=== PATIENT | male | born 1965 | race Caucasian/White ===

== ENCOUNTER 2018-09-02 11:14 | Emergency (ER) | payer SELFPAY ==
[~2018-09-02] VITALS: Ht 177.8 cm; Wt 78.0 kg
[2018-09-02] MEDS ORDERED: MAGNESIUM/ALUMINUM HYDROXIDE/SIMETHICONE 30ML UDC PO STA (11:39)
[2018-09-02] MEDS ORDERED: ONDANSETRON HCL 4MG/2ML INJ IV ONE (11:45)
[2018-09-02] MEDS ORDERED: SODIUM CHLORIDE 0.9% 1,000 ML IV ONE (11:45)
[2018-09-02] MEDS ORDERED: FAMOTIDINE 20MG/2ML VIAL IV ONE (11:45)
[2018-09-02 12:04] LABS: BASOPHILS % 0.4 % (0.0-2.0); HEMATOCRIT. 44.4 % (42.0-52.0); HEMOGLOBIN. 15.1 g/dL (14.0-18.0); LYMPHOCYTES % 12.7 % (20.0-50.0); MEAN CORPUSCULAR HEMOGLOBIN 32.1 pg (28.0-32.0); MEAN CORPUSCULAR VOLUME 94.2 fL (80.0-94.0); MEAN PLATELET VOLUME 8.9 fl (7.4-10.4); MONOCYTES % 6.7 % (2.0-8.0); NEUTROPHILS % 79.2 % (40.0-76.0); PLATELET 217 x1000/uL (130-400); RED BLOOD CELL COUNT 4.71 mill/uL (4.7-6.1); RED CELL DISTRIBUTION WIDTH 14.1 % (11.6-14.6)
[2018-09-02 12:11] LABS: CHLORIDE 109 mEq/L (98-107)
[2018-09-02 12:12] LABS: PROTHROMBIN TIME 10.1 sec (9.6-11.0)
[2018-09-02] MEDS ORDERED: ACETAMINOPHEN 650MG/20.3ML UDC PO ONE (13:15)
[2018-09-02] MEDS ORDERED: KETOROLAC 15MG/ML VIAL IV ONE (13:15)
[2018-09-02 13:37] VITALS: BP 132/108
== END 2018-09-02 13:45 | disposition home or self-care (01) ==
LOC: ER 11:14
DX: R55 Syncope and collapse (principal); S06.0X9A Concussion with loss of consciousness of unspecified duration, initial encounter; S09.8XXA Other specified injuries of head, initial encounter; S62.316A Displaced fracture of base of fifth metacarpal bone, right hand, initial encounter for closed fracture; R11.0 Nausea; W10.9XXA Fall (on) (from) unspecified stairs and steps, initial encounter; Y93.9 Activity, unspecified; Y92.9 Unspecified place or not applicable
CPT/HCPCS: 29125; 36415; 70450; 71045; 72125; 73130; 80053; 83880; 84484; 85025; 85610; 93005; 96361; 96374; 96375; 99284; J2405; J3490; J7030

== ENCOUNTER 2018-10-02 14:08 | Inpatient (IN) | payer OTHER ==
[~2018-10-02] VITALS: Ht 165.1 cm; Wt 77.6 kg
[2018-10-02] MEDS ORDERED: HYDROCODONE/ACETAMINOPHEN 5/325MG TABLET PO ONE (15:15)
[2018-10-02] MEDS ORDERED: MORPHINE SULFATE 4 MG/ML CPJ (NOT FOR IM USE) IV STA (18:13)
[2018-10-02 20:37] LABS: CHLORIDE 105 mEq/L (98-107)
[2018-10-02 20:45] LABS: BASOPHILS % 0.3 % (0.0-2.0); EOSINOPHILS % 1.1 % (0.0-5.0); HEMATOCRIT. 44.4 % (42.0-52.0); HEMOGLOBIN. 15.2 g/dL (14.0-18.0); LYMPHOCYTES % 14.6 % (20.0-50.0); MEAN CORPUSCULAR HEMOGLOBIN 32.3 pg (28.0-32.0); MEAN CORPUSCULAR VOLUME 94.5 fL (80.0-94.0); MEAN PLATELET VOLUME 8.5 fl (7.4-10.4); MONOCYTES % 5.5 % (2.0-8.0); NEUTROPHILS % 78.5 % (40.0-76.0); PLATELET 215 x1000/uL (130-400); RED BLOOD CELL COUNT 4.69 mill/uL (4.7-6.1)
[2018-10-02] MEDS ORDERED: HYDROCODONE/ACETAMINOPHEN 5/325MG TABLET PO NR (21:44)
[2018-10-02] MEDS ORDERED: ACETAMINOPHEN 325MG TABLET PO PRN (22:00)
[2018-10-02] MEDS ORDERED: CLONIDINE 0.1MG TABLET PO PRN (22:00)
[2018-10-02] MEDS ORDERED: ONDANSETRON HCL 4MG/2ML INJ IV PRN (22:00)
[2018-10-03 01:49] LABS: CLARITY URINE CLEAR (CLEAR); COLOR URINE YELLOW (YELLOW); KETONES URINE 1+ (NEGATIVE); LEUKOCYTE ESTERASE URINE NEGATIVE (NEGATIVE); NITRITE URINE NEGATIVE (NEGATIVE); OCCULT BLOOD URINE 1+ (NEGATIVE); PH URINE 5.5 (4.5-8.0); PROTEIN URINE NEGATIVE (NEGATIVE); UROBILINOGEN URINE 0.2 E.U./dL (0.2-1.0)
[2018-10-03 02:02] LABS: *AMPHETAMINES SCREEN URINE NEGATIVE (NEGATIVE)
[2018-10-03 02:03] LABS: *BARBITURATES SCREEN URINE NEGATIVE (NEGATIVE); *BENZODIAZEPINES SCREEN URINE NEGATIVE (NEGATIVE); *COCAINE SCREEN URINE PRESUMTIVE POSITIVE (NEGATIVE); METHADONE URINE SCREEN NEGATIVE (NEGATIVE); OPIATES URINE SCREEN PRESUMTIVE POSITIVE (NEGATIVE); PHENCYCLIDINE URINE SCREEN NEGATIVE (NEGATIVE)
[2018-10-03 02:04] LABS: CANNABINOID URINE SCREEN PRESUMTIVE POSITIVE (NEGATIVE)
[2018-10-03] MEDS: HYDROMORPHONE HCL/PF 2MG/ML CPJ IV PRN ×3 (02:05→16:14)
[2018-10-03 05:11] LABS: CHLORIDE 103 mEq/L (98-107)
[2018-10-03] MEDS: HYDROCODONE/ACETAMINOPHEN 5/325MG TABLET PO PRN ×3 (05:14→18:53)
[2018-10-03 08:00] VITALS: BP 138/83
[2018-10-03 08:03] VITALS: BP 138/83
[2018-10-03] MEDS ORDERED: ENOXAPARIN 40MG/0.4ML SYR SUBCUT SCH (09:00)
[2018-10-03] MEDS ORDERED: DOCUSATE SODIUM 250MG CAPSULE PO SCH (09:00)
[2018-10-03] MEDS ORDERED: IBUP-516 PO (09:43)
[2018-10-03 10:19] LABS: BASOPHILS % 0.3 % (0.0-2.0); HEMATOCRIT. 41.6 % (42.0-52.0); HEMOGLOBIN. 14.5 g/dL (14.0-18.0); LYMPHOCYTES % 18.8 % (20.0-50.0); MEAN CORPUSCULAR HEMOGLOBIN 32.7 pg (28.0-32.0); MEAN CORPUSCULAR VOLUME 94.1 fL (80.0-94.0); MEAN PLATELET VOLUME 8.4 fl (7.4-10.4); NEUTROPHILS % 69.9 % (40.0-76.0); PLATELET 201 x1000/uL (130-400); RED BLOOD CELL COUNT 4.42 mill/uL (4.7-6.1)
[2018-10-03 10:26] LABS: CHLORIDE 103 mEq/L (98-107)
[2018-10-03 12:00] VITALS: BP 114/74
[2018-10-03 15:57] VITALS: BP 123/83
[2018-10-03 18:21] VITALS: BP 120/66
[2018-10-03 20:00] VITALS: BP 98/63
== END 2018-10-03 20:51 | disposition home or self-care (01) | DRG 342 ==
LOC: ER 14:08 → 6EST 19:07 → EDBEDREQ 19:12 → ENRESERV 10-03 07:05 → 6EST 10-03 08:22
PROVIDERS: ADMIT Internal Medicine Geriatric Medicine; ATTEND Internal Medicine Geriatric Medicine
DX: S82.231A Displaced oblique fracture of shaft of right tibia, initial encounter for closed fracture (principal); S06.9X9A Unspecified intracranial injury with loss of consciousness of unspecified duration, initial encounter; D72.829 Elevated white blood cell count, unspecified; S01.81XA Laceration without foreign body of other part of head, initial encounter; F19.10 Other psychoactive substance abuse, uncomplicated; I10 Essential (primary) hypertension; V00.111A Fall from in-line roller-skates, initial encounter; Z82.49 Family history of ischemic heart disease and other diseases of the circulatory system; Y92.89 Other specified places as the place of occurrence of the external cause; Y99.8 Other external cause status; Y93.51 Activity, roller skating (inline) and skateboarding; Z88.1 Allergy status to other antibiotic agents
CPT/HCPCS: 36415; 73590; 80048; 80305; 81003; 83036; 93970; 96372; 96374; 97163; 99285; J1170; J1650; J2270

== ENCOUNTER 2018-11-17 18:17 | Emergency (ER) | payer OTHER ==
[~2018-11-17] VITALS: Ht 172.7 cm; Wt 78.0 kg
[~2018-11-17 18:17] MED LIST: IBUP-516 PO
[2018-11-17] MEDS ORDERED: SODIUM CHLORIDE 0.9% 1,000 ML IV ONE (18:36)
[2018-11-17 19:09] LABS: BASOPHILS % 0.3 % (0.0-2.0); EOSINOPHILS % 3.6 % (0.0-5.0); HEMATOCRIT. 42.2 % (42.0-52.0); HEMOGLOBIN. 14.3 g/dL (14.0-18.0); MEAN CORPUSCULAR HEMOGLOBIN 32.3 pg (28.0-32.0); MEAN CORPUSCULAR VOLUME 94.8 fL (80.0-94.0); MEAN PLATELET VOLUME 8.2 fl (7.4-10.4); MONOCYTES % 7.2 % (2.0-8.0); NEUTROPHILS % 49.9 % (40.0-76.0); PLATELET 195 x1000/uL (130-400); RED BLOOD CELL COUNT 4.45 mill/uL (4.7-6.1)
[2018-11-17 19:11] LABS: CHLORIDE 106 mEq/L (98-107)
[2018-11-17 19:12] LABS: *AMPHETAMINES SCREEN URINE NEGATIVE (NEGATIVE); *BARBITURATES SCREEN URINE NEGATIVE (NEGATIVE); *BENZODIAZEPINES SCREEN URINE NEGATIVE (NEGATIVE); CANNABINOID URINE SCREEN PRESUMTIVE POSITIVE (NEGATIVE); METHADONE URINE SCREEN NEGATIVE (NEGATIVE); OPIATES URINE SCREEN NEGATIVE (NEGATIVE); PHENCYCLIDINE URINE SCREEN NEGATIVE (NEGATIVE)
[2018-11-17 19:13] LABS: *COCAINE SCREEN URINE PRESUMTIVE POSITIVE (NEGATIVE)
[2018-11-17 19:19] LABS: ETHANOL BLOOD < 10 mg/dL
[2018-11-17 19:21] LABS: CREATINE KINASE 103 IU/L (39-308)
[2018-11-17 19:24] LABS: CREATINE KINASE MB FRACTION < 1.0 ng/mL (0.5-3.6)
[2018-11-18 06:55] VITALS: BP 137/79
== END 2018-11-18 06:56 | disposition home or self-care (01) ==
LOC: ER 18:17
DX: G92 Toxic encephalopathy (principal); T40.5X1A Poisoning by cocaine, accidental (unintentional), initial encounter; T43.595A Adverse effect of other antipsychotics and neuroleptics, initial encounter; R41.82 Altered mental status, unspecified; Y92.9 Unspecified place or not applicable; F31.9 Bipolar disorder, unspecified; Z88.1 Allergy status to other antibiotic agents
CPT/HCPCS: 36415; 80053; 80305; 80307; 80320; 80329; 82140; 82550; 82553; 83690; 84443; 84484; 85025; 93005; 99284; J7030; G0480